=== PATIENT | male | born 2000 | race African-American/Black ===

== ENCOUNTER 2019-12-09 12:38 | Emergency (ER) | payer SELFPAY ==
--- NOTE | 2019-12-09 13:31 | RAD ---
EXAM: Chest 2 views: HISTORY: Cough COMPARISON: None. FINDINGS: There is a normal-sized cardiomediastinal silhouette. There is no evidence of consolidation, mass, or pleural effusion. The bones are unremarkable. IMPRESSION: No evidence of acute cardiopulmonary disease
== END 2019-12-09 14:01 | disposition home or self-care (01) ==
LOC: ERS 12:38
DX: J06.9 Acute upper respiratory infection, unspecified (principal); F17.290 Nicotine dependence, other tobacco product, uncomplicated
CPT/HCPCS: 71046